=== PATIENT | female | born 1955 | race Caucasian/White ===

== ENCOUNTER 2021-03-03 06:30 | Day surgery (SDC) | payer MEDICARE, SELFPAY ==
[2021-03-03 06:37] VITALS: BMI 21.7
[2021-03-03 06:50] VITALS: BP 139/90; PULSE 73; RESP 16; TEMP 37.1; O2SAT 95
--- NOTE | 2021-03-03 07:10 | P.CONAN_ITS ---
[facility] Active Problems Active Problems: All Active Problems (Updated 02/25/21 @ 15:51 by Renea syed RN) Allergic conjunctivitis (Acute) Past Medical History Medical History Anxiety and depression Elevated cholesterol GERD (gastroesophageal reflux disease) HTN (hypertension) Hx of ovarian cancer Migraines Smoker Surgical History Surgical History History of carpal tunnel surgery of left wrist History of esophagogastroduodenoscopy (EGD) History of lung surgery History of tonsillectomy History of vocal cord polypectomy Hx of colonoscopy Hx of exploratory laparotomy Hx of hysterectomy History of Problems with Anesthesia: No Social History Social History Patient Tobacco Use Status: Current everyday Tobacco user Tobacco use type: Cigarette Cigarettes Per Day: 3 Use of substances other than those prescribed or required for medical reasons: Yes Substance Use Frequency: Daily Are you DNR?: No Advance Directives: Yes Advance Directives Information Provided: No Advance Directives on File: No Advance Directives Date on File: 03/03/21 Meds Allergies Allergy/AdvReac Type Severity Reaction Status Date / Time codeine [CODEINE] Allergy Intermediate VOMITING Verified 02/25/21 15:40 Iodinated Contrast Media Allergy Intermediate HIVES Verified 02/25/21 15:40 [IV CONTRAST] moxifloxacin [From AVELOX] Allergy Intermediate THRUSH Verified 02/25/21 15:40 SEASONAL ALLERGIES Allergy Intermediate HAYFEVER Uncoded 02/25/21 15:40 SYMPTOMS Home Medications Medication Instructions Recorded Confirmed Last Taken Type atorvastatin 40 mg tablet 1 tab PO DAILY 02/25/21 02/25/21 Unknown History bupropion HCl 300 mg 24 hr tablet, 1 tab PO DAILY 02/25/21 02/25/21 Unknown History extended release celecoxib 200 mg capsule 1 cap PO BID 02/25/21 02/25/21 Unknown History gabapentin 300 mg capsule 1 cap PO TID 02/25/21 02/25/21 Unknown History lisinopril 5 mg tablet 1 tab PO DAILY 02/25/21 02/25/21 Unknown History methylprednisolone 32 mg tablet mg PO 02/25/21 Unknown History mirtazapine 30 mg tablet 1 tab PO BEDTIME 02/25/21 02/25/21 Unknown History ondansetron HCl 8 mg tablet 1 tab PO Q8H PRN 02/25/21 02/25/21 Unknown History sertraline 100 mg tablet 1 tab PO DAILY 02/25/21 02/25/21 Unknown History vitamin B complex 1 cap PO DAILY 02/25/21 02/25/21 Unknown History Exam Exam Date and Time: March 03, 2021 0710 Height,Weight and Vital Signs: Height 5 ft 1 in Weight 52.163 kg Last Vital Signs Temp 98.8 F 03/03/21 06:50 Pulse 73 03/03/21 06:50 Resp 16 03/03/21 06:50 BP 139/90 H 03/03/21 06:50 Pulse Ox 95 03/03/21 06:50 Airway Mallampati Class: III TM Dist: >3cm Neck ROM: Full Loose/Missing/Broken Teeth: No Heart: RRR Lungs: CTA Assessment and Plan Assessment Anesthesia Assessment: Anesthesia Plan Discussed and Chart Reviewed Final Anesthetic Review History of Problems with Anesthesia: No NPO: Yes ASA Class: II and III Final Preanesthetic Review: Meds/Allgs Chart Reviewed, Consent Obtained/Reviewed and Anes Risks/Benef Reviewed Patient Risk: Low Procedure Risk: Intermediate Anesthetic Plan Anesthetic Plan: MAC: Disposition: Standard PACU
[2021-03-03] MEDS: Lactated Ringers 1,000 ML 50 ML IVCONT (07:39)
[2021-03-03 07:58] VITALS: BP 95/55; PULSE 68; RESP 18; TEMP 36.4; O2SAT 97
--- NOTE | 2021-03-03 08:05 | P.BOP_ITS ---
Brief Operative Note Date of Service: 03/03/21 Pre-op diagnosis: Abdominal pain Post-op diagnosis: other (Erosive gastritis, Esophagitis, Hiatal hernia) Procedure: EGD with biopsies Surgeon: Wilbur Schwartz Anesthesia: MAC Was an Tinner Automatic used for this Procedure?: No Estimated blood loss (mL): 2.0 Pathology: other (A. Gastric antrum B. EG Junction at 35cm) Condition: stable Disposition: PACU
[2021-03-03 08:13] VITALS: BP 135/89; PULSE 70; RESP 18; TEMP 36.4; O2SAT 96
--- NOTE | 2021-03-03 09:25 | OP_ITS ---
SURGEON: Wilbur Schwartz MD INDICATIONS: The patient presents for evaluation of abdominal pain. Full consent was obtained from her for this, including risks of bleeding and perforation. PREOPERATIVE DIAGNOSIS: Abdominal pain. POSTOPERATIVE DIAGNOSIS: PROCEDURE PERFORMED: Esophagogastroduodenoscopy with biopsies. ESTIMATED BLOOD LOSS: COMPLICATIONS: ANESTHESIA: Monitored anesthesia care. ASSISTANTS: SPECIMENS: POSTOPERATIVE DIAGNOSES: Abdominal pain, erosive gastritis, hiatal hernia, reflux esophagitis. DESCRIPTION OF PROCEDURE: The patient was placed in the left lateral decubitus position. The Olympus video gastroscope was passed in the posterior oropharynx and upper esophagus under direct vision. The scope was passed slowly into the distal esophagus. The gastroesophageal junction appeared at 35 cm. This area was notable for some edema, some irregularity, and small erosions. There was no evidence of any ulceration or mass. There may have been small, less than 1 cm areas of Franco mucosa. The scope entered into the stomach. There was a small hiatal hernia. The scope was advanced to pylorus and the duodenum was cannulated to the descending portion. The duodenum including the bulb appeared normal without mass or ulceration. The scope was withdrawn back in the stomach. The gastric antrum and body were notable for erosive gastritis with erythema, small erosions, and friability. There was some coffee-grounds material in the stomach at the beginning of the procedure. There was good peristalsis. Biopsies were obtained from the gastric antrum. The scope was retroflexed visualizing the proximal stomach carefully, which appeared normal, without any mass or ulceration. Scope was straightened and withdrawn back in the esophagus. Biopsies were obtained at the EG junction at 35 cm. Proximal to that the esophageal mucosa appeared normal. The scope was withdrawn from the patient. She tolerated the procedure well and returned to the recovery area in stable condition. IMPRESSION: 1. Erosive gastritis. 2. Hiatal hernia. 3. Reflux esophagitis. PLAN: The results of the biopsies will be checked. If Helicobacter pylori is present in the biopsies, I would recommend treating that at some point. I am going to start her on omeprazole 40 mg daily. She has been advised not to use any aspirin and NSAIDs long-term, but she does apparently have a prescription for Celebrex and I advised her that she could start using that again in 1 week but to use it as little as possible. She is scheduled for an ultrasound later today to rule out gallstones and I did advise her to keep that appointment. She will be seen in 2 to 3 months for a followup office visit. This has been discussed with her . MD CRYSTAL Galaviz/RACHEL / [id number] MTDD
== END 2021-03-03 08:28 | disposition home or self-care (01) ==
PROVIDERS: PCP Internal Medicine; Visit Provider Internal Medicine
PROC: 0DJ08ZZ Inspection of Upper Intestinal Tract, Via Natural or Artificial Opening Endoscopic (ICD-10-PCS; CPT 43235; principal; 2021-03-03 07:30)
DX: K29.50 Unspecified chronic gastritis without bleeding (principal); K21.00 Gastro-esophageal reflux disease with esophagitis, without bleeding; K44.9 Diaphragmatic hernia without obstruction or gangrene; I10 Essential (primary) hypertension; E78.5 Hyperlipidemia, unspecified; Z79.899 Other long term (current) drug therapy; Z85.43 Personal history of malignant neoplasm of ovary; Z85.118 Personal history of other malignant neoplasm of bronchus and lung; Z92.21 Personal history of antineoplastic chemotherapy; F17.210 Nicotine dependence, cigarettes, uncomplicated
CPT/HCPCS: 43239; 88305; 88342

== ENCOUNTER 2021-03-03 10:13 | Outpatient (REF) | payer MEDICARE, SELFPAY ==
--- NOTE | ~2021-03-03 | US_ITS ---
EXAMINATION: US ABDOMEN COMPLETE CLINICAL INFORMATION: Epigastric pain. COMPARISON: None TECHNIQUE: Real-time imaging of the abdominal viscera. FINDINGS: PANCREAS: Normal. ABDOMINAL AORTA: The proximal, mid, and distal segments are normal in caliber. INFERIOR VENA CAVA: Visualized portions are normal. LIVER: There is a small hyperechoic lesion in the right hepatic lobe measuring 0.90 x 1.1 x 0.93 cm, likely a small hemangioma. No additional lesions seen. The liver is normal in size. The liver contour is normal. Parenchymal echogenicity is normal. There is no intrahepatic biliary duct dilatation seen. GALLBLADDER: Normal. The gallbladder is physiologically distended without evidence of stones, sludge, polyps, wall thickening or pericholecystic fluid. COMMON BILE DUCT: Normal in caliber measuring 0.15 cm in diameter. RIGHT KIDNEY: There is an echogenic stone in the midpole laterally measuring 0.23 x 0.23 x 0.32 cm. There is no additional stone seen. There is an anechoic cyst in the midpole measuring 1.7 x 1.4 x 1.4 cm. No hydronephrosis. The kidney measures 10.3 cm in maximum dimension. LEFT KIDNEY: There is an echogenic stone in the lower pole measuring 0.31 x 0.23 x 0.3 cm. No caliectasis is seen. There is an anechoic cyst in the lower pole measuring 3.5 x 2.8 x 3.3 cm and a midpole cyst measuring 0.89 x 1.09 x 0.84 cm. No hydronephrosis. The kidney measures 10.4 cm in maximum dimension. SPLEEN: Normal. The spleen measures 9.0 cm in maximum dimension. FREE FLUID: None. US/US abdomen complete IMPRESSION: Bilateral nonobstructive echogenic renal calculi and simple anechoic cysts. There is a right hepatic lobe hemangioma. The rest of the abdominal ultrasound is unremarkable.
[2021-03-03 13:58] LABS: MANUAL DIFF FLAG NO
[2021-03-03 14:07] LABS: Basophils Percent Auto 0.2 % (0-2); Eosinophils Absolute Auto 0.1 X10*3/uL (0.0-0.4); Eosinophils Percent Auto 1.2 % (0-4); Hematocrit 40.9 % (37.0-47.0); Hemoglobin 13.5 g/dl (12.0-16.0); Imm Gran Abs Auto 0.02 X10*3/uL (0.00-0.03); Imm Gran Pct Auto 0.4 % (0.0-0.4); Lymphocytes Absolute Auto 1.1 X10*3/uL (1.2-4.9); Lymphocytes Percent Auto 23.2 % (20-40); Mean Corpuscular Hemoglobin 31.3 pg (27.0-33.0); Mean Corpuscular Volume 94.9 fL (80.0-98.0); Mean Platelet Volume 8.4 fL (9.4-12.3); Monocytes Absolute Auto 0.4 X10*3/uL (0.1-1.2); Monocytes Percent Auto 7.5 % (2-11); Neutrophils Absolute Auto 3.3 x10*3/uL (2.0-8.3); Neutrophils Percent Auto 67.5 % (45-73); Platelet Count 229 X10*3/uL (160-400); Red Blood Count 4.31 X10*6/uL (4.20-5.50); Red Cell Distribution Width 13.5 % (11.0-16.0); White Blood Count 4.9 X10*3/uL (4.8-10.8)
[2021-03-03 14:30] LABS: Alanine Aminotransferase 28 U/L (0-31); Albumin Level 3.9 g/dL (3.5-5.0); Alkaline Phosphatase 101 U/L (39-117); Amylase 83 U/L (28-100); Aspartate Amino Transferase 21 U/L (5-31); Bilirubin Direct < 0.2 mg/dL (0.0-0.5); Bilirubin Total 0.3 mg/dL (0.0-1.0); Lipase 91 U/L (8-78); Total Protein 6.2 g/dL (6.5-8.0)
== END 2021-03-03 10:14 | disposition home or self-care (01) ==
LOC: HO.HMGCX 10:13
PROVIDERS: PCP Internal Medicine; Visit Provider Internal Medicine
DX: R10.13 Epigastric pain (principal)
CPT/HCPCS: 36415; 76700; 80076; 82150; 83690; 85025

== ENCOUNTER 2022-02-22 08:05 | Day surgery (SDC) | payer MEDICARE, SELFPAY ==
--- NOTE | 2022-02-21 14:23 | HO.ANESPROP2 ---
Documented by User: Yvonne Nieto NP 02/21/22 14:24 HPI - Anesthesia Eval Consult details Narrative: 66yo F for Colonoscopy PMFSH Active Problems Active Problems: All Active Problems (Updated 02/25/21 @ 15:51 by Renea Frye, XIOMARA) Allergic conjunctivitis (Acute) Past Medical History Medical History Anxiety and depression Elevated cholesterol GERD (gastroesophageal reflux disease) HTN (hypertension) Hx of ovarian cancer Migraines Smoker Surgical History Surgical History (Updated 02/21/22 @ 12:46 by Estela Black RN) History of carpal tunnel surgery of left wrist History of esophagogastroduodenoscopy (EGD) History of lung surgery History of tonsillectomy History of vocal cord polypectomy Hx of colonoscopy Hx of exploratory laparotomy Hx of hysterectomy History of Problems with Anesthesia: No Social History Social History (Updated 02/22/22 @ 09:55 by Delphine Ma MD) Patient Tobacco Use Status: Current everyday Tobacco user Tobacco use type: Cigarette Cigarettes Per Day: 3 Smoked in Last 30 Days: Yes Patient Given Instructions on How to Stop Smoking: Yes Date Education Initiated: 02/22/22 Use of substances other than those prescribed or required for medical reasons: Yes Substance Use Type: Marijuana Are you DNR?: No Advance Directives: Yes Advance Directives on File: Yes Advance Directives Date on File: 03/03/21 Meds Allergies Allergy/AdvReac Type Severity Reaction Status Date / Time codeine [CODEINE] Allergy Intermediate VOMITING Verified 02/25/21 15:40 Iodinated Contrast Media Allergy Intermediate HIVES Verified 02/25/21 15:40 [IV CONTRAST] moxifloxacin [From AVELOX] Allergy Intermediate THRUSH Verified 02/25/21 15:40 SEASONAL ALLERGIES Allergy Intermediate HAYFEVER Uncoded 02/25/21 15:40 SYMPTOMS Home Medications Medication Instructions Recorded Confirmed Last Taken Type atorvastatin 40 mg tablet 1 tab PO DAILY 02/25/21 02/25/21 Unknown History bupropion HCl 300 mg 24 hr tablet, 1 tab PO DAILY 02/25/21 02/25/21 Unknown History extended release gabapentin 300 mg capsule 1 cap PO TID 02/25/21 02/25/21 Unknown History lisinopril 5 mg tablet 1 tab PO DAILY 02/25/21 02/25/21 Unknown History mirtazapine 30 mg tablet 1 tab PO BEDTIME 02/25/21 02/25/21 Unknown History ondansetron HCl 8 mg tablet 1 tab PO Q8H PRN Nausea And 02/25/21 02/25/21 Unknown History Vomiting sertraline 100 mg tablet 1 tab PO DAILY 02/25/21 02/25/21 Unknown History vitamin B complex 1 cap PO DAILY 02/25/21 02/25/21 Unknown History omeprazole 40 mg capsule,delayed 1 cap PO DAILY 02/21/22 02/21/22 Unknown History release Exam Exam Date and Time: February 21, 2022 142 Assessment and Plan Assessment Anesthesia Assessment: Chart Reviewed Final Anesthetic Review History of Problems with Anesthesia: No Documented by User: Delphine Ma MD 02/22/22 10:02 PMF Active Problems Active Problems: All Active Problems (Updated 02/22/22 @ 08:45 by Delphine Ma MD) Allergic conjunctivitis (Acute) Hard of hearing Smoker Past Medical History Medical History Anxiety and depression Elevated cholesterol GERD (gastroesophageal reflux disease) HTN (hypertension) Hx of ovarian cancer Migraines Smoker Family History Family history of problems with anesthesia: No Surgical History Surgical History (Updated 02/21/22 @ 12:46 by Estela Black RN) History of carpal tunnel surgery of left wrist History of esophagogastroduodenoscopy (EGD) History of lung surgery History of tonsillectomy History of vocal cord polypectomy Hx of colonoscopy Hx of exploratory laparotomy Hx of hysterectomy Social History Social History (Updated 02/22/22 @ 09:55 by Delphine Ma MD) Patient Tobacco Use Status: Current everyday Tobacco user Tobacco use type: Cigarette Cigarettes Per Day: 3 Smoked in Last 30 Days: Yes Patient Given Instructions on How to Stop Smoking: Yes Date Education Initiated: 02/22/22 Use of substances other than those prescribed or required for medical reasons: Yes Substance Use Type: Marijuana Are you DNR?: No Advance Directives: Yes Advance Directives on File: Yes Advance Directives Date on File: 03/03/21 Meds Allergies Allergy/AdvReac Type Severity Reaction Status Date / Time codeine [CODEINE] Allergy Intermediate VOMITING Verified 02/25/21 15:40 Iodinated Contrast Media Allergy Intermediate HIVES Verified 02/25/21 15:40 [IV CONTRAST] moxifloxacin [From AVELOX] Allergy Intermediate THRUSH Verified 02/25/21 15:40 SEASONAL ALLERGIES Allergy Intermediate HAYFEVER Uncoded 02/25/21 15:40 SYMPTOMS Home Medications Medication Instructions Recorded Confirmed Last Taken Type atorvastatin 40 mg tablet 1 tab PO DAILY 02/25/21 02/25/21 Unknown History bupropion HCl 300 mg 24 hr tablet, 1 tab PO DAILY 02/25/21 02/25/21 Unknown History extended release gabapentin 300 mg capsule 1 cap PO TID 02/25/21 02/25/21 Unknown History lisinopril 5 mg tablet 1 tab PO DAILY 02/25/21 02/25/21 Unknown History mirtazapine 30 mg tablet 1 tab PO BEDTIME 02/25/21 02/25/21 Unknown History ondansetron HCl 8 mg tablet 1 tab PO Q8H PRN Nausea And 02/25/21 02/25/21 Unknown History Vomiting sertraline 100 mg tablet 1 tab PO DAILY 02/25/21 02/25/21 Unknown History vitamin B complex 1 cap PO DAILY 02/25/21 02/25/21 Unknown History omeprazole 40 mg capsule,delayed 1 cap PO DAILY 02/21/22 02/21/22 Unknown History release Exam Height,Weight and Vital Signs: Height 5 ft 1 in Weight 52.163 kg Vital Signs Temp Pulse Resp BP Pulse Ox O2 Del Method 02/22/22 08:20 98.6 F 76 18 113/82 95 Room Air Airway Mallampati Class: III TM Dist: >3cm Neck ROM: Full Loose/Missing/Broken Teeth: No (Denies broken or loose teeth) Heart: RRR Lungs: Occasional wheeze Assessment and Plan Assessment Anesthesia Assessment: Anesthesia Plan Discussed Final Anesthetic Review Family History of Problems with Anesthesia: No NPO: Yes ASA Class: II Final Preanesthetic Review: No Changes in Pt Med Stat, Meds/Allgs Chart Reviewed, Consent Obtained/Reviewed and Anes Risks/Benef Reviewed Patient Risk: Intermediate Procedure Risk: Low Assessment/Block/Sedation in SS: Assess/Block/Sedation-SS Anesthetic Plan Anesthetic Plan: MAC: Disposition: Standard PACU
[2022-02-22 08:20] VITALS: BP 113/82; PULSE 76; RESP 18; TEMP 37; O2SAT 95; BMI 21.7
[2022-02-22] MEDS: Lactated Ringers 1,000 ML 100 ML IVCONT (08:36)
[2022-02-22 09:57] VITALS: BP 139/79; PULSE 80; RESP 16; TEMP 36.9; O2SAT 95
--- NOTE | 2022-02-22 10:02 | P.BOP_ITS ---
Brief Operative Note Date of Service: 02/22/22 Pre-op diagnosis: Screening Post-op diagnosis: other (Colon polyps) Procedure: Colonoscopy to the cecum and TI with hot snare polypectomy x 2, and marking with ink Surgeon: Wilbur Schwartz Anesthesia: MAC Was an Ventilation Equipment Tender used for this Procedure?: No Estimated blood loss (mL): 0 Pathology: other (A. Polyp between 20-30cm B. Rectal polyp) Condition: stable Disposition: PACU
[2022-02-22 10:12] VITALS: BP 126/84; PULSE 77; RESP 16; TEMP 36.9; O2SAT 95
--- NOTE | 2022-02-22 10:53 | OP_ITS ---
SURGEON: Wilbur Schwartz MD INDICATIONS: The patient presents for evaluation of colorectal cancer screening and personal history of tubular adenoma of the colon. Full consent was obtained from her for this, including risks of bleeding and perforation. PREOPERATIVE DIAGNOSIS: POSTOPERATIVE DIAGNOSIS: PROCEDURE PERFORMED: Colonoscopy to the cecum and terminal ileum with hot snare polypectomy x2 and marking with submucosal ink. ESTIMATED BLOOD LOSS: COMPLICATIONS: ANESTHESIA: Medication used, monitored anesthesia care. ASSISTANTS: SPECIMENS: PREOPERATIVE DIAGNOSES: Colorectal cancer screening and personal history of tubular adenoma of the colon. POSTOPERATIVE DIAGNOSES: Colorectal cancer screening and personal history of tubular adenoma of the colon, colon polyps, diverticulosis, and internal hemorrhoids. DESCRIPTION OF PROCEDURE: The patient was placed in the left lateral decubitus position. The digital rectal exam revealed no abnormalities. The Olympus video pediatric colonoscope was entered into the rectum and advanced to the cecum. Advancement past the sigmoid colon was difficult due to significant diverticulosis and probable adhesions from her previous surgeries in relation to the ovarian cancer. Once in the cecum, I did identify normal-appearing cecal pouch with appendiceal orifice and a normal-appearing ileocecal valve. The terminal ileum was cannulated and appeared normal. The scope was withdrawn back in the colon. The entire cecum and ileocecal valve appeared normal. The scope was slowly withdrawn assessing all mucosal surfaces carefully. Preparation was excellent. The mucosa in the ascending colon and area of hepatic flexure was somewhat edematous with some friability. Irrigating the mucosa did not reveal any underlying colitis. In the region between 20 and 30 cm was a relatively large adenomatous appearing and friable polyp on a somewhat broad stalk. The polyp was approximately 1.5 cm in diameter. This was removed by hot snare polypectomy at the base of the stalk. Given its appearance, I did terra the area with some mucosal ink twice with good moore noted. As mentioned, the polyp appeared to be between 20 and 30 cm, although as the scope was being advanced into the patient it was seen more between 50 and 60 cm. As the scope was withdrawn it was more between 20 and 30 cm. There was clearly some looping. After the submucosal ink moore were placed, the polyp was retrieved with a retrieval net. I would have ideally placed a clip on the polypectomy site even though there was no bleeding, just due to the size of the polyp. However, the polyp itself was proximal to the polypectomy site after it was removed and therefore I felt that if I placed a clip it would then become a problem when I advanced in with the net to retrieve the polyp, I did not want the net to get tangled up on the clip. Therefore, the polyp itself was just withdrawn with the net from the patient. The scope was readvanced back to the polypectomy site which appeared clean, without any sign of residual polyp nor bleeding. However, I was unable to place a clip given difficulty getting a good angle at it given all of the diverticulosis and adhesions. I did not visualize any other polyps other than in the distal rectum seen in the retroflexed position. This was approximately 1 cm and was removed by hot snare polypectomy and recovered by suction. The polypectomy site appeared clean, without any sign of residual polyp nor bleeding. Internal hemorrhoids were noted. The scope was straightened and withdrawn from the patient. She tolerated the procedure well and was returned to recovery area in stable condition. IMPRESSION: 1. Colon polyps. 2. Diverticulosis. 3. Internal hemorrhoids. PLAN: The results of the pathology will be checked. Given these findings, I would recommend a repeat colonoscopy in 1 year. She was advised not to use any aspirin nor NSAIDs for 2 weeks. She will otherwise see me on a p.r.n. basis. MD CRYSTAL Galaviz/RACHEL / [id number] MTDD
== END 2022-02-22 10:35 | disposition home or self-care (01) ==
PROVIDERS: PCP Internal Medicine; Visit Provider Internal Medicine
PROC: 0DJD8ZZ Inspection of Lower Intestinal Tract, Via Natural or Artificial Opening Endoscopic (ICD-10-PCS; CPT 45378; principal; 2022-02-22 09:30)
DX: Z12.11 Encounter for screening for malignant neoplasm of colon (principal); Z86.010 Personal history of colon polyps; D12.5 Benign neoplasm of sigmoid colon; D12.8 Benign neoplasm of rectum; K57.30 Diverticulosis of large intestine without perforation or abscess without bleeding; K64.8 Other hemorrhoids; K66.0 Peritoneal adhesions (postprocedural) (postinfection); K21.00 Gastro-esophageal reflux disease with esophagitis, without bleeding; I10 Essential (primary) hypertension; E78.00 Pure hypercholesterolemia, unspecified; G43.909 Migraine, unspecified, not intractable, without status migrainosus; Z79.899 Other long term (current) drug therapy; F17.210 Nicotine dependence, cigarettes, uncomplicated; Z85.43 Personal history of malignant neoplasm of ovary; Z90.710 Acquired absence of both cervix and uterus
CPT/HCPCS: 45385; 45381; 88305; J3010

== ENCOUNTER 2022-09-05 08:00 | Outpatient (AMB) | payer MEDICARE, SELFPAY ==
--- NOTE | 2022-09-05 08:01 | MHC.OFFWIV ---
Intake Vital Signs 09/05/22 08:02 BP 130/60 Blood Pressure Location Lt brachial Position Sitting Pulse 94 Pulse Source Pulse Oximeter Temp 98.3 F Temp Source Oral Pulse Oximetry (%) 96 Oxygen Delivery Method Room Air Intake Visit Reasons: EST/right foot pain(lobby) Intake Note: Pt is here today Rt foot pain due to cast iron helms fell on foot yesterday Patient Tobacco Use Status: Current everyday Tobacco user Allergies codeine [CODEINE] Allergy (Intermediate, Verified 09/05/22 08:11) VOMITING Iodinated Contrast Media [IV CONTRAST] Allergy (Intermediate, Verified 09/05/22 08:11) HIVES moxifloxacin [From AVELOX] Allergy (Intermediate, Verified 09/05/22 08:11) THRUSH SEASONAL ALLERGIES Allergy (Intermediate, Uncoded 09/05/22 08:11) HAYFEVER SYMPTOMS Medication List - Last Reconciled 09/05/22 by Nawaf Reich MD atorvastatin 1 tab PO DAILY bupropion HCl 1 tab PO DAILY gabapentin 1 cap PO TID lisinopril 1 tab PO DAILY mirtazapine 1 tab PO BEDTIME omeprazole 1 cap PO DAILY ondansetron HCl 1 tab PO Q8H PRN sertraline 1 tab PO DAILY vitamin B complex 1 cap PO DAILY HPI EST/right foot pain(lobby) HPI Details 67-year-old female presented to the office for a sick visit. Yesterday a heavy helms fell on her right foot. The foot is swollen and she is not able to bear weight. PFSH Medical History Anxiety and depression Elevated cholesterol GERD (gastroesophageal reflux disease) HTN (hypertension) Hx of ovarian cancer Migraines Smoker Surgical History (Updated 02/21/22 @ 12:46 by Estela Black RN) History of carpal tunnel surgery of left wrist History of esophagogastroduodenoscopy (EGD) History of lung surgery History of tonsillectomy History of vocal cord polypectomy Hx of colonoscopy Hx of exploratory laparotomy Hx of hysterectomy Social History (Updated 02/22/22 @ 09:55 by Delphine Ma MD) Patient Tobacco Use Status: Current everyday Tobacco user Tobacco use type: Cigarette Cigarettes Per Day: 3 Substance Use Type: Marijuana Advance Directives Date on File: 03/03/21 Physical Exam Vital Signs: Last Vital Signs Temp 98.3 F 09/05/22 08:02 Pulse 94 09/05/22 08:02 BP 130/60 09/05/22 08:02 Pulse Ox 96 09/05/22 08:02 Oxygen Delivery Method Room Air 09/05/22 08:02 Extrem Other: Right foot: Swelling over the dorsum of the foot around the 1st metatarsal area. Pain on flexion of the great toe. Assessment & Plan Assessment & Plan (1) Contusion of foot, right: Code(s): S90.31XA - Contusion of right foot, initial encounter Plan: X-ray images were personally reviewed by me. No fractures seen. Patient was advised to keep the foot elevated. Anti-inflammatories called in. Orders: Orders XR foot RT min 3V Today S90.31XA - Contusion of right foot, initial encounter Coding Level of Care Code Est Pt Level 4 (32211) Diagnoses Contusion of foot, right S90.31XA
[2022-09-05 08:02] VITALS: BP 130/60; PULSE 94; TEMP 36.8; O2SAT 96
== END 2022-09-05 08:52 | disposition home or self-care (01) ==
PROVIDERS: PCP Internal Medicine; Visit Provider Internal Medicine
DX: S90.31XA Contusion of right foot, initial encounter (principal)
CPT/HCPCS: 99214

== ENCOUNTER 2022-09-05 08:10 | Outpatient (REF) | payer MEDICARE, SELFPAY ==
--- NOTE | ~2022-09-05 | XR_ITS ---
EXAMINATION: XR FOOT, RIGHT CLINICAL INFORMATION: Contusion right foot COMPARISON: None available. TECHNIQUE: AP, lateral, and oblique views of the right foot. FINDINGS: Mild soft tissue prominence and mild degenerative changes identified first MTP. Achilles enthesopathy/calcification. No fracture or dislocation. XR/XR foot RT min 3V IMPRESSION: No acute bony pathology
== END 2022-09-05 08:11 | disposition home or self-care (01) ==
LOC: HO.HMGCX 08:10
PROVIDERS: PCP Internal Medicine; Visit Provider Internal Medicine
DX: S90.31XA Contusion of right foot, initial encounter (principal)
CPT/HCPCS: 73630

== ENCOUNTER 2023-11-16 11:13 | Outpatient (AMB) | payer MEDICARE, SELFPAY ==
[2023-11-16 12:07] VITALS: BP 120/82; PULSE 76; O2SAT 95; BMI 20.3
--- NOTE | 2023-11-16 12:07 | AM.OFFWIN_ITS ---
Intake Vital Signs 3 11/16/23 12:07 Height 5 ft 1 in Weight 107 lb 4 oz BMI 20.3 BP 120/82 Blood Pressure Location Lt brachial Position Sitting Pulse 76 Pulse Source Pulse Oximeter Pulse Oximetry (%) 95 Oxygen Delivery Method Room Air Intake Visit Reasons: EP-lt hand pain from fall Patient Tobacco Use Status: Current everyday Tobacco user Allergies codeine [CODEINE] Allergy (Intermediate, Verified 11/16/23 12:14) VOMITING Iodinated Contrast Media [IV CONTRAST] Allergy (Intermediate, Verified 11/16/23 12:14) HIVES moxifloxacin [From AVELOX] Allergy (Intermediate, Verified 11/16/23 12:14) THRUSH SEASONAL ALLERGIES Allergy (Intermediate, Uncoded 09/05/22 08:11) HAYFEVER SYMPTOMS Medication List - Last Reconciled 11/16/23 by Nae Aaron MD atorvastatin 1 tab PO DAILY bupropion HCl XL 1 tab PO DAILY gabapentin 1 cap PO TID lisinopril 1 tab PO DAILY meloxicam 15 mg PO DAILY mirtazapine 1 tab PO BEDTIME omeprazole 1 cap PO DAILY ondansetron HCl 1 tab PO Q8H PRN sertraline 1 tab PO DAILY vitamin B complex 1 cap PO DAILY Do you need a note to return to daycare/school/sports/work: No HPI EP-lt hand pain from fall 2 HPI0 Details Patient is 68 year old female came in to be evaluated for Left hand pain and chest wall pain from fall this am Patient's left thumb is sore, patient says that when she fell her thumb was hyperextended She is able to move it however it is tender to palpation at the base I see that patient also have a severe osteoarthritis in her small joints She is also complaining of pain left side of her ribcage secondary to fall I have ordered x-ray of her thumb as well as her ribs Patient was instructed to keep her hand elevated while we wait for x-ray report She may take Tylenol for pain management Minimize the use of left thumb PFSH Medical History Smoker HTN (hypertension) Anxiety and depression Hx of ovarian cancer GERD (gastroesophageal reflux disease) Migraines Elevated cholesterol Surgical History History of esophagogastroduodenoscopy (EGD) History of lung surgery History of vocal cord polypectomy Hx of exploratory laparotomy History of carpal tunnel surgery of left wrist Hx of colonoscopy History of tonsillectomy Hx of hysterectomy Social History Patient Tobacco Use Status: Current everyday Tobacco user Tobacco use type: Cigarette Cigarettes Per Day: 3 Substance Use Type: Marijuana Advance Directives Date on File: 03/03/21 Review of Systems Const All systems reviewed & are unremarkable except as noted in HPI and below Physical Exam Vital Signs: Last Vital Signs Pulse 76 11/16/23 12:07 BP 120/82 11/16/23 12:07 Pulse Ox 95 11/16/23 12:07 Oxygen Delivery Method Room Air 11/16/23 12:07 BMI result Body Mass Index 20.3 Const General: no acute distress Orientation/consciousness: patient oriented x3 Eyes General: appearance normal, both eyes and all related structures Chest Chest/axillae images: 2 1. So to palpation, patient is able to take deep breaths Resp Effort & Inspection: normal respiratory effort and able to speak in complete sentences Auscultation: clear to auscultation bilaterally Neuro General: patient oriented x3 Extrem Hand/finger images: 2 1. Tender to palpation, wrist movement is intact with soreness in that area, sensory vascular intact Psych Mental Status: mental status grossly normal Assessment & Plan Assessment & Plan (1) Injury of left hand: Code(s): S69.92XA - Unspecified injury of left wrist, hand and finger(s), initial encounter Qualifiers: Encounter type: initial encounter Qualified Code(s): S69.92XA - Unspecified injury of left wrist, hand and finger(s), initial encounter (2) Hand pain, left: Code(s): M79.642 - Pain in left hand (3) Chest wall injury: Code(s): S29.9XXA - Unspecified injury of thorax, initial encounter Qualifiers: Encounter type: initial encounter Qualified Code(s): S29.9XXA - Unspecified injury of thorax, initial encounter (4) Fall: Code(s): W19.XXXA - Unspecified fall, initial encounter (5) Thumb pain: Code(s): M79.646 - Pain in unspecified finger(s) Qualifiers: Laterality: left Qualified Code(s): M79.645 - Pain in left finger(s) Plan Patient is 68 year old female came in to be evaluated for Left hand pain and chest wall pain from fall this am Patient's left thumb is sore, patient says that when she fell her thumb was hyperextended She is able to move it however it is tender to palpation at the base I see that patient also have a severe osteoarthritis in her small joints She is also complaining of pain left side of her ribcage secondary to fall I have ordered x-ray of her thumb as well as her ribs Patient was instructed to keep her hand elevated while we wait for x-ray report She may take Tylenol for pain management Minimize the use of left thumb Orders: Orders 2 XR finger LT min 2V Today M79.646 - Pain in unspecified finger(s), W19.XXXA - Unspecified fall, initial encounter Coding Level of Care Code Est Pt Level 3 (88652) Diagnoses Injury of left hand, initial encounter S69.92XA Encounter type: initial encounter Hand pain, left M79.642 Injury of chest wall, initial encounter S29.9XXA Encounter type: initial encounter Fall W19.XXXA Pain of left thumb M79.645 Laterality: left
== END 2023-11-16 12:44 | disposition home or self-care (01) ==
PROVIDERS: PCP Internal Medicine; Visit Provider Internal Medicine
DX: S69.92XA Unspecified injury of left wrist, hand and finger(s), initial encounter (principal); M79.642 Pain in left hand; S29.9XXA Unspecified injury of thorax, initial encounter; W19.XXXA Unspecified fall, initial encounter; M79.645 Pain in left finger(s)

== ENCOUNTER → 2023-11-16 11:13 | Outpatient (BNVA) | payer MEDICARE, SELFPAY | PROVIDERS: PCP Internal Medicine ==

== ENCOUNTER 2023-11-16 12:19 | Outpatient (REF) | payer MEDICARE, SELFPAY ==
--- NOTE | ~2023-11-16 | XR_ITS ---
EXAMINATION: XR RIBS, BILATERAL CLINICAL INFORMATION: reason for Exam S29.9XXA - Unspecified injury of thorax, initial encounter COMPARISON: None available. TECHNIQUE: 3 views of the bilateral ribs were obtained. FINDINGS: Central venous catheter tip in SVC. There is an ill-defined somewhat spiculated appearing opacity in the right lower lobe. Lungs otherwise clear. . The cardiomediastinal silhouette and pulmonary vasculature are normal. Osseous structures are unremarkable. Ribs are intact. No fractures are identified. XR/XR ribs BI min 4V w CXR1V IMPRESSION: 1. No rib fracture identified. 2. Ill-defined somewhat spiculated appearing opacity in the right lower lobe. This is of uncertain significance. Although this could reflect scarring and/or atelectasis I cannot exclude mass/neoplasm. No prior chest examinations for comparison. If this is a new finding recommend further characterization with CT. Receipt of this report will be confirmed when the offices are available by our critical care transport nurse team. Electronically signed by: Ben Marcus MD 11/17/2023 11:34 AM EDT
--- NOTE | ~2023-11-16 | XR_ITS ---
EXAMINATION: XR HAND, LEFT CLINICAL INFORMATION: Pain in left hand COMPARISON: None available. TECHNIQUE: PA, lateral, and oblique views of the left hand. FINDINGS: 1st carpometacarpal joint severe osteoarthritis with marked joint space narrowing marginal osteophytes subchondral cystic changes subchondral sclerosis. Additional [id number] osteoarthritis of the DIP joints and IP joint of the thumb. Remaining bones joints and soft tissues unremarkable. XR/XR hand LT min 3V IMPRESSION: Osteoarthritis with degenerative changes most prominent and severe involving the 1st carpometacarpal joint Electronically signed by: Ben Marcus MD 11/17/2023 11:29 AM EDT
== END 2023-11-16 12:20 | disposition home or self-care (01) ==
LOC: HO.HMGCX 12:19
PROVIDERS: PCP Internal Medicine; Visit Provider Internal Medicine
DX: M79.642 Pain in left hand (principal); S29.9XXA Unspecified injury of thorax, initial encounter
CPT/HCPCS: 71111; 73130; 99212